=== PATIENT | male | born 2000 | race African-American/Black ===

== ENCOUNTER → 2020-08-16 | Outpatient (CLI) | payer OTHER | LOC: COL.PUL 11:01 | DX: R06.02 Shortness of breath (principal) ==

== ENCOUNTER → 2020-10-03 | Outpatient (CLI) | payer OTHER | LOC: COL.PUL 09:41 | DX: R06.02 Shortness of breath (principal) ==

== ENCOUNTER → 2020-11-21 | Outpatient (CLI) | payer OTHER | LOC: COL.PUL 09:45 | DX: R06.02 Shortness of breath (principal) | CPT/HCPCS: J7674 ==